=== PATIENT | female | born 1990 | race Caucasian/White ===

== ENCOUNTER 2019-04-13 09:49 | Emergency (ER) | payer OTHER ==
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
[2019-04-13] MEDS ORDERED: Adacel (T-DAP) 0.5 ML SYRINGE ONE (12:35)
== END 2019-04-13 13:10 | disposition home or self-care (01) ==
LOC: ERS 09:49
DX: S92.251A Displaced fracture of navicular [scaphoid] of right foot, initial encounter for closed fracture (principal); S81.812A Laceration without foreign body, left lower leg, initial encounter; S80.01XA Contusion of right knee, initial encounter; S80.02XA Contusion of left knee, initial encounter; F98.8 Other specified behavioral and emotional disorders with onset usually occurring in childhood and adolescence; Z79.899 Other long term (current) drug therapy; V44.5XXA Car driver injured in collision with heavy transport vehicle or bus in traffic accident, initial encounter
CPT/HCPCS: 90715